=== PATIENT | female | born 1950 | race Caucasian/White ===

== ENCOUNTER 2017-11-24 13:35 | Inpatient (IN) | payer OTHER ==
[~2017-11-24] VITALS: Ht 160 cm; Wt 58.5 kg
--- NOTE | ~2017-11-24 | EEG ---
[facility] [place] [address] ELECTROENCEPHALOGRAM Name: JAYCOB RAMIREZ MANNY Room #: 364-P ADM IN M.R.#: [id number] Admission: 11/24/17 Attend Phys: Terrence Ayala, Discharge: Date of : 54 Report #: [id number] THIS REPORT FOR: //name// CC: Terrence Ayala This patient is being evaluated for dizziness. EEG was done by placing the electrode by standard 10-20 system of electrode placement. Both referential and sequential montages were used for recording. Background activity in this patient's EEG is about 10 Hz and 30 microvolts. It is a symmetrical activity. The patient became drowsy that is associated with bilateral slowing. Photic stimulation is unremarkable. Throughout the record, no active epileptiform activity was noticed. IMPRESSION: This patient's EEG is unremarkable. By: 1511 1542 Lev Shukla MD /jayy
--- NOTE | ~2017-11-24 | HC ---
[facility] [place] [address] CONSULTATION Name: JAYCOB RAMIREZ MANNY Room #: 363-P ADM IN M.R.#: [id number] Admission: 11/24/17 Attend Phys: Gilles Camargo Discharge: Date of : 54 Report #: [id number] THIS REPORT FOR: //name// CC: Terrence Ayala DATE OF SERVICE: 11/24/2017 HISTORY OF PRESENT ILLNESS: This is a 66-year-old female patient who was evaluated by me for double vision, which started on Friday. She woke up with it. She did not come to emergency room right away, but she did come later on. 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 She also had some dizziness, some mild headache, and some balance issues. They are difficult to evaluate because the patient had a stroke in the past. REVIEW OF SYSTEMS: Positive for stroke, which affected the left side of the body. 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 She had a stent put in there. She had a stent put in her lower extremities. She is on Plavix. She follows up with Dr. Solis. She does have some disk problems in the past. She has a history of depression and she had a history of kidney stone and adrenal masses. She continued to smoke. REVIEW OF SYSTEMS: A 14-point review of system was carried out and this was a relevant 14-point review of system. PAST MEDICAL HISTORY: Positive for stroke. FAMILY HISTORY: Negative for early age stroke. SOCIAL HISTORY: Positive for smoking. PHYSICAL EXAMINATION: NEUROLOGY: Indicates she is alert, responsive, and able to follow simple and complex command. Her speech, concentration, fund of knowledge, and memory is at her baseline. Cranial nerve examination 2-12 indicate partial left third nerve palsy. Pupil may be slightly bigger, but mostly spared. She has some weakness on the left side. She is hyperreflexic on the left. Tone may be slightly increased. Sensation is somewhat diminished. No cerebellar sign on the right side. I did not make her walk. She is moderately built individual who does not have any dysmorphic features of eyes, ears, and face. Her vision and hearing looks adequate. IMAGING DATA: She did have a CTA, but had a CTA of the head only and that did not show any aneurysm. IMPRESSION: The patient's clinical presentation is consistent with partial third nerve palsy. There is no evidence for aneurysm. It is probably [address] [address] CONSULTATION Name: JAYCOB RAMIREZ [facility] Room #: 363-P ADM IN M.R.#: [id number] Admission: 11/24/17 Attend Phys: Gilles Camargo Discharge: Date of : 54 Report #: [id number] idiopathic. We will see what the sed rate shows. We will give a patch to the patient and ask her to alternate that. I discussed with her that no ophthalmologists come here. I discussed with her the thing she needs to do. We will get an MRI done because sometime brainstem cerebrovascular accident can present exactly the same way. She is already on aspirin and limited things can be done. She got the angiogram only of the head, so we will go ahead and do a carotid Doppler in this patient. If MRI shows stroke, we may need some further workup. Thank you very much for this referral and we will follow this patient along with you. She got some aspirin, but I think we probably will just continue her Plavix for the time being. More than 50 minutes of time was spent taking care of this patient and majority of that time was spent counseling this patient and coordinating her care. By: 1848 [id number] Lev Shukla MD /nt
--- NOTE | ~2017-11-24 | H ---
[facility] [place] [address] HISTORY AND PHYSICAL Name: JAYCOB RAMIREZ MANNY Room #: 364-P ADM IN M.R.#: [id number] Admission: 11/24/17 Attend Phys: Gilles Camargo Discharge: Date of : 54 Report #: [id number] THIS REPORT FOR: //name// CC: Terrence Ayala DATE OF SERVICE: 11/24/2017 CHIEF COMPLAINT: Dizziness and double vision. HISTORY OF PRESENT ILLNESS: The patient is a 66-year-old female who presented to the Emergency Room after 2-3 day history of dizziness and diplopia. She said she awoke on Friday with symptoms of double vision, dizziness, mild bowel and some nausea and a mild headache. Symptoms have basically been waxing and waning for the last couple of days. As they did not improve, she presented to the Emergency Room last night. She has had no fever, chills, chest pain or shortness of breath. She reports a stroke in 2002, when she received TPA. She also reported a history of peripheral stent placed in right leg artery about one month ago for peripheral vascular disease. PAST MEDICAL HISTORY: Prior stroke in 2002, kidney stones in 2008. She had a stent placed in the innominate artery and a stent in the right leg. She has had a C5 displaced disk. PAST SURGICAL HISTORY: Noncontributory. FAMILY HISTORY: Noncontributory. SOCIAL HISTORY: She has a 67-myeg-ykgt history of smoking, but has quit. No chronic alcohol use. ALLERGIES: MRI CONTRAST. MEDICATIONS: Wellbutrin, trazodone, Plavix, Flexeril. REVIEW OF SYSTEMS: She denies headache, chest pain, shortness of breath, abdominal pain, fever, chills, nausea, vomiting, diarrhea, constipation, dysuria, syncope, falls. OBJECTIVE: VITAL SIGNS: Temperature 36.6, pulse 83, respirations 18, blood pressure 145/93, O2 sat 90-100% on room air. GENERAL: She is awake and alert, in no distress. HEENT: Reveals weakness of the left facial muscles and speech is clear. HEART: Regular. LUNGS: Clear. ABDOMEN: Soft, normoactive bowel sounds. [facility] [address] [place] [address] HISTORY AND PHYSICAL Name: JAYCOB RAMIREZ [facility] Room #: 364-P ADM IN .R.#: [id number] Admission: 11/24/17 Attend Phys: Gilles Camargo Discharge: Date of : 54 Report #: [id number] EXTREMITIES: No edema. NEUROLOGIC: She is alert and oriented x 4. Motor strength intact throughout. Labs and CT reviewed. ASSESSMENT: 1. Diplopia. 2. Left third cranial nerve palsy. 3. Cerebrovascular disease with remote history of stroke. 4. Peripheral vascular disease with recent history of stent to the right leg. PLAN: An MRI has been obtained today, and Neurology Service has assessed her. I will ask for Therapies to review as well. <ELECTRONICALLY SIGNED> By: Les Swan MD 11/25/17 1057 1023 1052 Les Swan MD /nt
--- NOTE | ~2017-11-24 | EKG ---
[address] [address] ELECTROCARDIOGRAM REPORT Name: JAYCOB RAMIREZ Room #: 364-P ADM IN M.R.#: [id number] Admission: 11/24/17 Attend Phys: Gilles Camargo Discharge: Date of : 54 Report #: [id number] THIS REPORT FOR: //name// [facility] ED Test Date: 2017-11-24 Test Time: 13:42:18 Pat Name: JAYCOB RAMIREZ Department: Room: 364 Gender: F Hair Boiler: : 1950 Requested By: Nasima Butler Order Number: [id number] MD: Morgan Shearer Measurements Intervals [place] Rate: 98 P: 80 OH: 130 QRS: 58 QRSD: 74 T: -57 QT: 328 QTc: 419 Interpretive Statements Sinus rhythm Left atrial enlargement Borderline repolarization abnormality Compared to ECG 05/11/2014 10:08:29 Atrial abnormality now present Sinus tachycardia no longer present ST (T wave) deviation no longer present Electronically Signed On 11-25-2017 17:06:52 CDT by Morgan Shearer [email or web address] <ELECTRONICALLY SIGNED> By: Morgan Shearer MD 11/25/17 1706 1342 1342 Morgan Shearer MD /EPI
--- NOTE | ~2017-11-24 | D ---
[facility] [place] [address] DISCHARGE SUMMARY Name: JAYCOB RAMIREZ Room #: 364-P ADM IN M.R.#: [id number] Admission: 11/24/17 Attend Phys: Gilles Camargo Discharge: Date of : 54 Report #: [id number] THIS REPORT FOR: //name// CC: Terrence Ayala DATE OF SERVICE: 11/26/2017 FINAL DIAGNOSES: 1. Cerebrovascular accident. 2. Dyslipidemia. HOSPITAL COURSE: The patient was admitted with double vision and dizziness. She was seen by the Neurology Service. She had symptoms of peripheral left cranial nerve third palsy and eye patch was applied. MRI confirmed a subacute pontine stroke. Plavix was reinstituted along with aspirin 81 mg. Lipid panel was obtained with cholesterol 216, LDL 180 on Lipitor 10 mg. She was walking 250 feet independently with just quad cane. She had no other interval complication. PHYSICAL EXAMINATION: GENERAL: On the day of discharge, she was awake and alert, in no distress. VITAL SIGNS: Temperature 36.6, pulse 77, respirations 20, blood pressure 130/80, ranging to 160/77, O2 sat 92% on room air. LUNGS: Clear. HEART: Regular. ABDOMEN: Soft, normoactive bowel sounds. EXTREMITIES: No edema. DISPOSITION: She is discharged to home with diet and activity as tolerated. No driving. Follow up with Dr. Ayala and Dr. Shukla in 2 weeks. Resume usual medicines plus aspirin 81 mg and Lipitor 10 mg. <ELECTRONICALLY SIGNED> By: Les Swan MD 11/27/17 0906 1312 1729 Les Swan MD /nt
--- NOTE | ~2017-11-24 | 2DMMODE ---
[facility] [address] [email or web address] [address] 2 D/M-MODE ECHOCARDIOGRAM Name: JAYCOB RAMIREZ MANNY Room #: 364-P ADM IN M.R.#: [id number] Admission: 11/24/17 Attend Phys: Terrence Brown Discharge: Date of : 54 Date of Service: 11/27/17 1544 Report #: [id number] THIS REPORT FOR: //name// APPROVED REPORT Study performed: 11/27/2017 14:36:13 EXAM: Comprehensive 2D, Doppler, and color-flow Echocardiogram Patient Location: Echo lab Room #: 364 Status: routine BSA: 1.60 HR: 88 bpm BP: 135/79 mmHg Rhythm: NSR Other Information Study Quality: Good Indications CVA. Hx: PVD, CVA, tobacco abuse. Echo Enhancing Agent Comments: Patient had no IV/No CV nurse 2D Dimensions RVDd: 21.60 mm IVSd: 12.00 (7-11mm) LVOT Diam: 18.06 (18-24mm) LVDd: 37.00 mm PWd: 12.00 (7-11mm) LVDs: 25.10 (25-40mm) Aortic Root: 25.65 mm Volumes Left Atrial Volume (Systole) Single Plane 4CH: 23.38 mL Single Plane 2CH: 24.65 mL LA ESV Index: 17.00 mL/m2 Aortic Valve AoV Peak Mason.: 1.69 m/s AO Peak Gr.: 11.47 mmHg LVOT Max P.62 mmHg LVOT Max V: 1.19 m/s STEFF Vmax: 1.[address] [facility] [address] [address] 2 D/M-MODE ECHOCARDIOGRAM Name: JAYCOB RAMIREZ [facility] Room #: 364-P [facility] IN [facility]#: [id number] Admission: 11/24/17 Attend Phys: Terrence Brown Discharge: Date of : 54 Date of Service: 11/27/17 1544 Report #: [id number] E/A Ratio: 0.7 MV Decel. Time: 200.57 ms MV E Max Mason.: 0.63 m/s MV A Mason.: 0.89 m/s MV PHT: 58.17 ms IVRT: 79.58 ms Pulmonary Valve PV Peak Mason.: 1.05 m/s PV Peak Gr.: 4.42 mmHg Pulmonary Vein P Vein S: 0.91 m/s P Vein D: 0.60 m/s P Vein S/D Ratio: 1.52 Tricuspid Valve TR Peak Mason.: 2.40 m/s RAP Estimate: 5.00 mmHg TR Peak Gr.: 22.97 mmHg PA Pressure: 28.00 mmHg Left Ventricle The left ventricle is normal size. There is normal LV segmental wall motion. Mild concentric left ventricular hypertrophy. Left ventricular systolic function is normal. LVEF is 60-65%. Mild diastolic dysfunction is present (impaired relaxation pattern). Right Ventricle The right ventricle is normal size. The right ventricular systolic function is normal. Atria The left atrium size is normal. No ASD/PFO noted with color doppler. The right atrium size is normal. Aortic Valve The Aortic valve is mildly sclerotic. No aortic regurgitation is present. There is no aortic valvular stenosis. Mitral Valve The mitral valve is normal in structure. There is no mitral valve regurgitation noted. No evidence of mitral valve stenosis. Tricuspid Valve The tricuspid valve is normal in structure. Trace tricuspid regurgitation. Estimated PAP is 28mmHg. [facility] [address] [id number] 2 D/M-MODE ECHOCARDIOGRAM Name: JAYCOB RAMIREZ [facility] Room #: 364-P [facility] IN M.R.#: [id number] Admission: 11/24/17 Attend Phys: Terrence Brown Discharge: Date of : 54 Date of Service: 11/27/17 1544 Report #: [id number] Pulmonic Valve Pulmonic valve is not well visualized. There is no pulmonic valvular stenosis. There is no pulmonic valvular regurgitation. Great Vessels The aortic root is normal in size. Pericardium No significant pericardial effusion. <Conclusion> The left ventricle is normal size. LVEF is 60-65%. The Aortic valve is mildly sclerotic. The mitral valve is normal in structure. The tricuspid valve is normal in structure. Trace tricuspid regurgitation. Estimated PAP is 28mmHg. Pulmonic valve is not well visualized. There is no pulmonic valvular stenosis. No significant pericardial effusion. No ASD/PFO noted with color doppler. <ELECTRONICALLY SIGNED> By: Toi Brice MD 11/27/17 1544 1544 1544 Toi Brice MD /INF
[~2017-11-24 13:35] MED LIST: BELLADONNA ALK PO; DESYREL50 MG PO; DUONEB 2.5-0.5 M3 ML INH; ENOXAPARIN40 MG/0.1 SUBQ; FENTANYL PA25 MCG/HR TRANSDERM; FLEXERIL PO; LIDODERM 5%1 PATC1 TRANSDERM; LIPITOR10 MG PO; MOBIC7.5 MG PO; NORCO 5-325 TA1 EACH PO; PERCOCET 5-3251 EACH; PRAVACHOL20 MG; PROTONIX40 M1 PO; ROBAXIN 750 MG750 M1 PO; ROXICODONE5 M2 PO; TRAZODONE HCL100 MG PO; TUMS PO; VISTARIL 25 MG25 M1 PO; WELLBUTRIN XL150 M1 PO
[2017-11-24] MEDS ORDERED: WELLBUTRIN XL300 MG PO (13:48)
[2017-11-24] MEDS ORDERED: TRAZODONE HCL100 MG PO (13:49)
[2017-11-24] MEDS ORDERED: FLEXERIL PO (13:50)
[2017-11-24] MEDS ORDERED: PLAVIX 75 MG TA75 M1 PO (13:50)
[2017-11-24 14:35] LABS: ABSOLUTE NEUTROPHILS 6.9 thou/uL (1.4-8.2); BASOPHILS 0.6 % (0.0-2.0); EOSINOPHILS 0.5 % (0.0-3.0); HEMATOCRIT 43.5 % (37.0-47.0); HEMOGLOBIN 15.2 gm/dL (12.0-15.0); LYMPHOCYTES 15.5 % (24.0-44.0); MCH 32.4 pg (26.0-34.0); MCV 92.6 fL (80.0-100.0); MONOCYTES 6.7 % (1.0-8.0); PLATELET COUNT 207 thou/uL (150-400); POLYS 76.7 % (36.0-66.0); RBC 4.69 mil/uL (4.20-5.00); RDW 14.3 % (10.5-14.5); WBC 8.9 thou/uL (4.0-11.0)
[2017-11-24 14:45] LABS: CALCIUM 10.1 mg/dL (8.5-10.1); POTASSIUM 3.4 mmol/L (3.5-5.1)
[2017-11-24 14:58] LABS: APTT 23.3 Seconds (24.5-32.8); PROTIME 10.1 Seconds (9.3-11.4)
[2017-11-24 15:38] LABS: URINE BILIRUBIN NEGATIVE (Negative); URINE BLOOD TRACE (Negative); URINE CLARITY CLEAR; URINE COLOR YELLOW; URINE GLUCOSE-RANDOM* NEGATIVE (Negative); URINE KETONES NEGATIVE (Negative); URINE NITRITE-REFLEX NEGATIVE (Negative); URINE PROTEIN (DIPSTICK) NEGATIVE (Negative); URINE UROBILINOGEN 0.2 E.U./dl (0.2-1.0)
[2017-11-24 15:39] LABS: URINE LEUKOCYTES-REFLEX TRACE (Negative)
[2017-11-24 16:34] VITALS: BP 129/71
[2017-11-24 17:00] VITALS: BP 131/72
[2017-11-24 17:55] VITALS: BP 189/94
[2017-11-24 20:27] VITALS: BP 135/80; BP 35/80
[2017-11-25 00:12] VITALS: BP 134/96
[2017-11-25 04:11] VITALS: BP 145/93
[2017-11-25 13:22] VITALS: BP 133/89
[2017-11-25 17:24] VITALS: BP 130/80
[2017-11-25 19:05] VITALS: BP 150/80
[2017-11-26 03:09] VITALS: BP 145/76
[2017-11-26 07:05] LABS: CHOLESTEROL 260 mg/dL (<200); HDL CHOLESTEROL 44 mg/dL (>40); LDL CHOLESTEROL 180 mg/dL (<100); TC:HDL 5.9 Ratio (Not establshd); TRIGLYCERIDE 182 mg/dL (<150); VLDL 36 mg/dL (<40)
[2017-11-26 07:08] LABS: SERUM ASSESSMENT Clear
[2017-11-26 07:32] LABS: TSH 1.66 uIU/mL (0.358-3.740)
[2017-11-26 07:38] VITALS: BP 160/77
[2017-11-26] MEDS ORDERED: LIPITOR10 MG PO (13:08)
[2017-11-26] MEDS ORDERED: ASPIRIN81 M2 PO (13:08)
[2017-11-26 16:04] VITALS: BP 141/82
[2017-11-26 19:15] VITALS: BP 120/75
[2017-11-27 04:00] VITALS: BP 119/61
[2017-11-27 08:38] VITALS: BP 135/79
[2017-11-27 16:19] VITALS: BP 132/78
[2017-11-27 19:45] VITALS: BP 152/79
[2017-11-28 05:00] VITALS: BP 150/77
[2017-11-28 09:00] VITALS: BP 138/80
[2017-11-28 14:19] VITALS: BP 138/80
== END 2017-11-28 16:52 | disposition home health service (06) | DRG 66 ==
LOC: ER 13:35 → EROBS 15:49 → 3W 15:49 → ENTRNSPT 11-28 16:40 → 3W 11-28 16:52
PROVIDERS: Emergency Medicine; Psychiatry & Neurology Neuromuscular Medicine
DX: I63.9 Cerebral infarction, unspecified (principal); H49.00 Third [oculomotor] nerve palsy, unspecified eye; F32.9 Major depressive disorder, single episode, unspecified; H55.00 Unspecified nystagmus; E78.5 Hyperlipidemia, unspecified; H53.2 Diplopia; I73.9 Peripheral vascular disease, unspecified; Z66 Do not resuscitate; Z87.81 Personal history of (healed) traumatic fracture; Z87.442 Personal history of urinary calculi; Z88.8 Allergy status to other drugs, medicaments and biological substances; Z91.041 Radiographic dye allergy status; Z87.891 Personal history of nicotine dependence; Z79.82 Long term (current) use of aspirin; Z79.899 Other long term (current) drug therapy
CPT/HCPCS: 10879

== ENCOUNTER 2020-06-10 13:41 | Emergency (ER) | payer OTHER ==
[~2020-06-10] VITALS: Ht 157.5 cm; Wt 66.2 kg
[~2020-06-10 13:41] MED LIST changes: +ASPIRIN81 M2 PO; +PLAVIX 75 MG TA75 M1 PO; +WELLBUTRIN XL300 MG PO
[2020-06-10 14:05] LABS: URINE BILIRUBIN NEGATIVE (Negative); URINE BLOOD 3+ (Negative); URINE COLOR YELLOW; URINE GLUCOSE-RANDOM* NEGATIVE (Negative); URINE KETONES NEGATIVE (Negative); URINE LEUKOCYTES-REFLEX 2+ (Negative); URINE NITRITE-REFLEX NEGATIVE (Negative); URINE PROTEIN (DIPSTICK) TRACE (Negative)
[2020-06-10 14:06] LABS: URINE CLARITY HAZY
[2020-06-10 14:12] LABS: SQUAMOUS 0-3 Few /LPF (0-3)
[2020-06-10 14:13] LABS: CASTS None Seen /LPF (None Seen); URINE RBC >20 Many /HPF (NONE SEEN); URINE WBC-REFLEX 0-5 Rare /HPF (0-5)
[2020-06-10 14:14] LABS: CRYSTALS None Seen /LPF (None Seen)
[2020-06-10 14:27] LABS: BASOPHILS 0.4 % (0.0-2.0); EOSINOPHILS 1.5 % (0.0-3.0); HEMATOCRIT 42.5 % (37.0-47.0); HEMOGLOBIN 15.1 gm/dL (12.0-15.0); LYMPHOCYTES 21.4 % (24.0-44.0); MCH 33.1 pg (26.0-34.0); MCHC 35.4 g/dL (28.0-37.0); MCV 93.6 fL (80.0-100.0); MONOCYTES 7.2 % (1.0-8.0); PLATELET COUNT 239 thou/uL (150-400); POLYS 69.5 % (36.0-66.0); RBC 4.55 mil/uL (4.20-5.00); RDW 14.7 % (10.5-14.5); WBC 7.2 thou/uL (4.0-11.0)
[2020-06-10 14:38] LABS: CREATININE 1.1 mg/dL (0.6-1.0)
[2020-06-10 14:45] LABS: ALBUMIN 3.4 g/dL (3.4-5.0); TOTAL BILIRUBIN 0.2 mg/dL (0.2-1.0); TOTAL PROTEIN 6.9 g/dL (6.4-8.2)
[2020-06-10] MEDS ORDERED: CIPRO500 M1 PO (15:52)
[2020-06-10] MEDS ORDERED: NORCO5 PO (15:52)
[2020-06-10 16:19] VITALS: BP 126/72
== END 2020-06-10 16:19 | disposition home or self-care (01) ==
LOC: ER 13:41
PROVIDERS: Physician Assistant
DX: N20.1 Calculus of ureter (principal); N39.0 Urinary tract infection, site not specified; J44.9 Chronic obstructive pulmonary disease, unspecified; K21.9 Gastro-esophageal reflux disease without esophagitis; F17.210 Nicotine dependence, cigarettes, uncomplicated; Z86.73 Personal history of transient ischemic attack (TIA), and cerebral infarction without residual deficits; Z91.041 Radiographic dye allergy status

== ENCOUNTER 2020-12-27 12:15 | Inpatient (IN) | payer OTHER ==
[~2020-12-27] VITALS: Ht 157.5 cm; Wt 60.3 kg
--- NOTE | ~2020-12-27 | EMS ---
[facility] [address] [place] [address] EMS Patient Care Report Name: JAYCOB RAMIREZ MANNY Room #: REG TWAN [place]#: [id number] Admission: 12/27/20 Attend Phys: Discharge: Date of : 54 Report #: [id number] THIS REPORT FOR: //name// Report Transmitted: 12/27/2020 12:08 EMS Care Summary [place], [place]/[facility] Incident [id number] @ 12/27/2020 11:53 Incident Location [address] [place] [address] Patient JAYCOB RAMIREZ Female, 70 Years 1950 Patient Address Patient History Stroke/CVA, Patient Allergies No known allergies, Patient Medications Trazodone, Chief Complaint L hip pain/fall Disposition Transported No Lights/[place] Dispatch Reason Falls Transported To [facility] Narrative pt found seated on stool in garage. she is a&o, states she lost her balance and fell in the garage. towel sorter saw fall and called it in. pt denies hitting head, only c/o pain to L hip. bystander helped pt up onto stool MACHINE [employer]MBRE[employer] TIPPER. pt states she is unable to bear weight on ext. she is req eval at [facility]. pt seated on cot, transport w/o change. report to RN rm 5. [facility] [address] [place] [address] EMS Patient Care Report Name: JAYCOB RAMIREZ Room #: REG [facility]..#: [id number] Admission: 12/27/20 Attend Phys: Discharge: Date of : 54 Report #: [id number] Initial Vitals @12:09P: 100,R: 18,BP: 150/70,Pain: 8/10,GCS: 15,SpO2: 94,Revised Trauma: 12, Assessments @12:00MENTAL:No Abnormalities,SKIN:No Abnormalities,HEENT:LUNG SOUNDS:ABDOMEN:PELVIS//GI:Tenderness,EXTREMITIES:PULSE:NEURO:Other, Impression Injury of Hip Procedures @12:00 ALS Assessment Response: Unchanged @12:05 Stretcher Response: Unchanged Timeline 11:52,Call Received 11:52,Dispatch Notified 11:53,Dispatched 11:53,En Route 11:59,On Scene 12:00,At Patient 12:00,ALS Assessment,Response: Unchanged 12:05,Stretcher,Response: Unchanged 12:07,Depart Scene 12:09,BP: 150/70 M,PULSE: 100,RR: 18 R,SPO2: 94 Ox,ETCO2: ,BG: ,PAIN: 8,GCS: 15, 12:13,At Destination 12:24,Call Closed Disclaimer v1.1 Copyright 2020 [employer] This EMS Care Summary contains data elements from the applicable legal record (which may be displayed differently). It is designed to provide pertinent information for the following purposes: continuity of care, clinical quality, and state data reporting. The complete legal record is available to ED staff and administrators of the receiving hospital in [facility]'s Patient Tracker. All data is provided "as is."
--- NOTE | ~2020-12-27 | O ---
[facility] [place] [address] OPERATIVE REPORT Name: JAYCOB RAMIREZ Room #: 448-P ADM IN M.R.#: [id number] Admission: 12/27/20 Attend Phys: Boris Rogers MD Discharge: Date of : 54 Report #: [id number] THIS REPORT FOR: cc: Terrence Ayala MD, Christopher B. MD Abraham, Scott M. MD ~ DATE OF SERVICE: 12/27/2020 PREOPERATIVE DIAGNOSIS: Left 2-part intertrochanteric hip fracture. POSTOPERATIVE DIAGNOSIS: Left 2-part intertrochanteric hip fracture. PROCEDURE: Treatment of left intertrochanteric hip fracture with IM nail. SURGEON: Eugenio Collins MD INSTRUCTIONAL SERVICES SPECIALIST: Denisse Coffman PA-C. INDICATION FOR INSTRUCTIONAL SERVICES SPECIALIST: Throughout the case, extensive retraction, manipulation of the hip was required. This was afforded to me by my senior executive assistant. ANESTHESIA: LMA. IMPLANTS: A [employer] size 10 short InterTAN nail with a size 90 lag screw and a size 85 compression screw and a size 27.5 distal locking screws. ESTIMATED BLOOD LOSS: 50 mL COMPLICATIONS: None. SPECIMENS: None. CONDITION UPON LEAVING THE OPERATING ROOM: Stable. INDICATIONS FOR PROCEDURE: The patient is a 70-year-old female who fell at home and sustained a left nondisplaced 2-part intertrochanteric hip fracture. After discussion with her, she elected for treatment with an IM nail. DESCRIPTION OF PROCEDURE: Risks, benefits, alternatives, complications were discussed in detail with the patient, including but not limited to risk of anesthesia, risk of damage to nerves, arteries, blood vessels, risk for infection, bleeding, risk for continued hip pain, malunion, nonunion, need for reoperation. Informed consent was obtained from the patient. Left hip was appropriately marked in the preoperative holding area. IV Ancef was given for preoperative antibiotics. She was brought to the operating room and LMA anesthesia was induced without complication. She was transferred to the [address] [address] OPERATIVE REPORT Name: JAYCOB RAMIREZ [facility] Room #: 448-P [facility] IN .R.#: [id number] Admission: 12/27/20 Attend Phys: Boris Rogers MD Discharge: Date of : 54 Report #: [id number] table. Left lower extremity was placed in slight traction. Right lower extremity was scissored. Left hip and lower extremity were prepped and draped in normal sterile fashion. Timeout was performed, properly identifying the patient, procedure as well as the instrumentation and implants. All in the operating room were in agreement. A 2-inch incision proximal to the greater trochanter was made with 10 blade through the skin and fascia in line with the femur. Threaded tip guidewire was taken and was placed on the tip of the greater trochanter and verified to be in adequate starting portal position under AP and lateral imaging. This was taken down to the level of the lesser trochanter. An entry portal reamer was used to ream the entry portal and a size 10 short InterTAN nail was placed down across the fracture site and seated. Fluoroscopic imaging was then used to place the guidewire for the lag screw in the center-center position under AP and lateral images. This was measured and found to be a size 90. The path for the compression screw was then reamed and a derotation device was placed. A size 90 lag screw was then placed up into the femoral head and a size 85 compression screw was placed and tightened. The nail was locked from above and 1 distal locking screw was placed in the dynamic slot. This was 27.5 mm in length. After this, the ____ was removed. Final fluoroscopic images were taken to verify adequate fracture reduction and placement of hardware. Wounds were thoroughly irrigated with normal saline, closed with 2-0 Vicryl, skin staple. Soft dressing was applied. The patient tolerated this procedure well and went to the recovery room under care of anesthesia postoperatively. By: 1312 1336 Eugenio Collins MD /jayy
[2020-12-27 12:15] VITALS: BP 190/85
[~2020-12-27 12:15] MED LIST changes: +CIPRO500 M1 PO; +NORCO5 PO
[2020-12-27 17:18] LABS: URINE BILIRUBIN NEGATIVE (Negative); URINE BLOOD 3+ (Negative); URINE CLARITY CLEAR; URINE COLOR YELLOW; URINE GLUCOSE-RANDOM* NEGATIVE (Negative); URINE KETONES NEGATIVE (Negative); URINE LEUKOCYTES-REFLEX TRACE (Negative); URINE NITRITE-REFLEX NEGATIVE (Negative); URINE PROTEIN (DIPSTICK) NEGATIVE (Negative); URINE SPECIFIC GRAVITY 1.025 (1.005-1.035); URINE UROBILINOGEN 0.2 E.U./dl (0.2-1.0)
[2020-12-27 17:32] LABS: CASTS None Seen /LPF (None Seen); SQUAMOUS 0-3 Few /LPF (0-3)
[2020-12-27 17:33] LABS: BACTERIA-REFLEX 1-9 Few /HPF (None Seen); CRYSTALS None Seen /LPF (None Seen); URINE WBC-REFLEX 0-5 Rare /HPF (0-5)
[2020-12-27] MEDS ORDERED: TRAMADOL 50 MG50 MG PO (17:36)
[2020-12-27] MEDS ORDERED: VITAMIN D31250 MC1 PO (17:37)
[2020-12-27 17:43] LABS: BASOPHILS 0.5 % (0.0-2.0); EOSINOPHILS 0.9 % (0.0-3.0); HEMATOCRIT 45.4 % (37.0-47.0); HEMOGLOBIN 15.3 gm/dL (12.0-15.0); LYMPHOCYTES 12.8 % (24.0-44.0); MCH 31.4 pg (26.0-34.0); MCHC 33.7 g/dL (28.0-37.0); MCV 93.1 fL (80.0-100.0); MONOCYTES 7.7 % (1.0-8.0); PLATELET COUNT 201 thou/uL (150-400); POLYS 78.1 % (36.0-66.0); RBC 4.87 mil/uL (4.20-5.00); WBC 10.3 thou/uL (4.0-11.0)
[2020-12-27 17:48] LABS: CALCIUM 9.4 mg/dL (8.5-10.1); POTASSIUM 3.8 mmol/L (3.5-5.1)
[2020-12-27 19:22] VITALS: BP 122/72
[2020-12-27 20:33] VITALS: BP 134/77
--- NOTE | 2020-12-27 23:16 | NUR ---
ADMISSION COMPLETED. PT IS CALM AND PLEASANT. WITH LEFT HIP PAIN MAINLY WITH MOVEMENT.PT ALSO HAS PERIODIC SPASMS.SOME BRUISING NOTED FROM THE FALL. SCDS PLACED. PT ON /NC TO KEEP SATS ABOVE 92 %. I/S PROVIDED AND PT ENCOURAGED TO USE W/A. EXTERNAL FEM CATHETER.LIGHT YELLOW U/O NOTED. OXYCODONE GIVEN FOR PAIN AND IVF STARTED. SHE ATE SOME TURKEY SANDWICH. NPO AFTER MIDNIGHT.CALL LIGHT WITHIN REACH.
[2020-12-28 04:56] VITALS: BP 110/52
[2020-12-28 05:27] LABS: HEMATOCRIT 40.5 % (37.0-47.0); MCH 32.6 pg (26.0-34.0); MCHC 34.7 g/dL (28.0-37.0); MCV 93.9 fL (80.0-100.0); RBC 4.31 mil/uL (4.20-5.00); WBC 7.4 thou/uL (4.0-11.0)
[2020-12-28 05:49] LABS: CALCIUM 9.1 mg/dL (8.5-10.1); POTASSIUM 3.7 mmol/L (3.5-5.1)
[2020-12-28 08:46] VITALS: BP 127/62
--- NOTE | 2020-12-28 09:00 | NUR ---
70 year old female with a history of CVA, PAD and tobacco abuse who presented to the ED with complaints of left hip pain after a fall. The patient was walking in her garage and tripped over her own feet and fell. Workup in the ED showed an acute L femoral neck intertrochanteric fracture. She complains with pain with movement of the left leg per attending physician. Tx with IM NAIL. to OR for FIXATION. CM visited with her at bedside. Intro to cm and dcp. She is A & o x 3, able to make her needs known. Independent, Lives alone. 2 flights of steps with total of 14 steps. Manage own medication. Has a cane and fww. no home oxygen but is on oxygen per pr. Unknown if she had hh in the past. She has been to skilled rehab at [address]. Plan for OR today. Will cont following as needed.
--- NOTE | 2020-12-28 10:34 | NUR ---
A/O X 4. 2 L O2 VIA NASAL CANNULA. LEFT FOREARM IV WITH NS @ 75 MLS/HR. LEFT HIP PAIN 09/19 NORCO GIVEN. NPO SINCE MIDNIGHT FOR SURGERY ON LEFT HIP TODAY.
[2020-12-28 11:57] VITALS: BP 95/69
[2020-12-28 16:25] VITALS: BP 111/71
[2020-12-28 20:18] VITALS: BP 93/65
--- NOTE | 2020-12-29 04:02 | NUR ---
ASSUMED CARE OF PT AT 1900. BEDSIDE REPORT RECIEVED. OTTO ASSESSMENT COMPLETE. C/O 8 L HIP PAIN. PAIN MEDS GIVEN ACCORDINLY, MEDS GIVEN PER MAR. IVF INFUSING AND IV ABTS RUNNING PER APR. REILLED ICE PACK TO L HIP. Q2 HOUR REPOSITIONING FOR COMFORT. PUREWICK IN PLACE. ALL NEEDS MET. CALL LIGHT IN REACH, HIGH FALL PRECAUTIONS IN PLACE
[2020-12-29 04:55] LABS: CALCIUM 8.5 mg/dL (8.5-10.1); CREATININE 0.9 mg/dL (0.6-1.0); POTASSIUM 4.1 mmol/L (3.5-5.1)
--- NOTE | 2020-12-29 04:57 | NUR ---
I AGREE WITH NURSE BAKER ON THE ASSESSMENT AND CHARTING OF THIS PT.
[2020-12-29 05:00] LABS: HEMATOCRIT 38.5 % (37.0-47.0); MCH 32.1 pg (26.0-34.0); MCHC 33.7 g/dL (28.0-37.0); MCV 95.4 fL (80.0-100.0); RBC 4.04 mil/uL (4.20-5.00); RDW 13.4 % (10.5-14.5); WBC 7.5 thou/uL (4.0-11.0)
[2020-12-29 08:36] VITALS: BP 161/77
--- NOTE | 2020-12-29 09:09 | NUR ---
A/O X 4. ON 2 L O2 VIA NASAL CANNULA. ONE ASSIST WITH TRANSFERS. LEFT FOREARM PIV WITH NS INFUSING @ 75 MLS/HR. PUREWICK IN PLACE. LEFT HIP DRESSING DRY, CLEAN, INTACT. PAIN LEVEL 8/[address] ICE PL[address] ON LEFT HIP.
--- NOTE | 2020-12-29 09:45 | NUR ---
Cm visited with pat at bedside, education on rehab and skilled rehab. Been to [facility] in the past and if needs rehab she is agreeable. 5n consult. If she does not meet criteria for 5N, will send referral to [facility]. Will need insurance auth either way for acute rehab or skilled. Will cont following as needed for dc needs.
[2020-12-29 16:06] VITALS: BP 144/70
[2020-12-29 20:35] VITALS: BP 145/73
--- NOTE | 2020-12-30 04:12 | NUR ---
ASSUMED CARE OF PT AT 1900. BEDSIDE REPORT RECIEVED. OTTO ASSESSMENT COMPLETE. PT C/O 8/10 L HIP PAIN. L HIP DRESSING CDI C NO APPARENT DRAINAGE. MEDES GIVEN PER MAR, PAIN MEDS GIVEN ACCORDINGLY. Q 2 HOUR REPOSITIOING FOR COMFORT. PUREWICK IN PLACE. 2 L NC. IVF INFUSING. HIGH FALL PRECAUTIONS IN PLACE. ALL NEEDS MET, CALL LIGHT IN REACH
[2020-12-30 08:08] VITALS: BP 155/70
--- NOTE | 2020-12-30 10:06 | NUR ---
A/O X 4. 2 L O2 VIA NASAL CANNULA. ONE ASSIST WITH TRANSFERS WITH WALKER. LEFT FOREARM IV WITH NS INFUSING @ 75MLS/HR. OXYCODONE GIVEN FOR HIP PAIN
[2020-12-30 16:37] VITALS: BP 152/78
[2020-12-30 19:35] VITALS: BP 153/78
--- NOTE | 2020-12-31 00:31 | NUR ---
ASSUMED PT CARE AT 0000.PT WAS OBSERVED LYING IN BED WITH HER EYES CLOSED. DRSG TO HER L HIP C/D/I.EXTERNAL FEMALE CATH IN PLACE.PT ON 2L/NC.PT BREATHING NORMAL AND UNLABORED.CALL LIGHT WITHIN REACH.
[2020-12-31 08:14] VITALS: BP 149/62
--- NOTE | 2020-12-31 09:49 | NUR ---
ASSUMED CARE OF PT AT 0700 THIS MORNING. PT IS A/OX4, AND HAD ABD SURGERY 12/30. PT STATED SHE IS READY TO GO HOME. SKIN INTACT WITH LAP SITES X 5. ABD TENDER AND SLIGHTLY DISTENDED WITH ACTIVE BOWEL SOUNDS. BM THIS MORNING WITH NO ISSUES. ASSESSMENTS NOTED IN CHART AND OTHERWISE UNREMARKABLE. PT IS UP INDEP AND NO FALL PRECAUTIONS NEEDED. MEDS AND OTHER TX GIVEN NEEDED AND SCHEDULED. DR. HINKLE STATED PT CAN BE DICHARGED AND ORDERS HAVE BEEN GIVEN. PT STATED CANNOT TAKE THE [place] PERSCRIBED TO HER AND REQUESTS TORDOL. DR. HINKLE WAS NOTIFIED AND STATED OK. PT WAS GIVEN DISCHARGE INSTRUCTIONS AND WAS TRANSPORTED BY WC AND [facility] TO ER EXIT.
--- NOTE | 2020-12-31 12:45 | NUR ---
ASSUMED CARE OF PT AT 0700 THIS MORNING. PT WAS A/OX4 THIS MORNING AND WAS NOT C/O ANY PAIN. PT HAS PUREWIC IN PLACE. LT HIP HAS ABD PAD WITH TAPE C/D/I. POST SURGERY DAY 2 AND PT REALLY WOULD LIKE TO GET UP AGAIN TODAY. I WILL CHECK WITH PHYS THPY AND SEE IF SHE'S ON THE SCHEDULE. ASSESSMENTS NOTED IN CHART AND OTHERWISE UNREMARKABLE. PT IS 2X ASST. WITH GB AND WALKER. FALL PRECAUTIONS ARE IN PLACE. CALL LIGHT AND OTHER NEEDS ARE IN PLACE. MEDS AND TX GIVEN NEEDED AND SCHEDULED. WILL MONITOR AND NOTE ANY CHANGES.
[2020-12-31 14:16] VITALS: BP 149/62
[2020-12-31 19:35] VITALS: BP 144/65
[2021-01-01 04:52] VITALS: BP 137/57
--- NOTE | 2021-01-01 05:44 | NUR ---
PT LYING IN BED. PERCOCET PROVIDING PAIN RELIEF. RESTING COMFORTABLY. NO NEEDS VOICED. CALL LIGHT WITHIN REACH. FREQUENT OBSERVATION.
[2021-01-01 07:15] LABS: HEMATOCRIT 35.5 % (37.0-47.0); MCH 31.4 pg (26.0-34.0); MCHC 33.9 g/dL (28.0-37.0); MCV 92.7 fL (80.0-100.0); RBC 3.83 mil/uL (4.20-5.00); RDW 13.3 % (10.5-14.5); WBC 5.8 thou/uL (4.0-11.0)
[2021-01-01 07:18] LABS: CREATININE 0.8 mg/dL (0.6-1.0); POTASSIUM 3.2 mmol/L (3.5-5.1)
[2021-01-01 09:47] VITALS: BP 152/78
--- NOTE | 2021-01-01 09:54 | NUR ---
HCR of graciela has insurance auth from [facility] for skilled rehab. Chart copy requested. Need covid test prior to dc today. Spoke with zita and she agrees with dcp. Esteban spoke with her sister sushma and she agrees with dcp as well. Sushma will need to be notified of transportation time. Bedside nurse to call report to [phone].
[2021-01-01] MEDS ORDERED: TRI-BUFFERED A325 M1 PO (12:58)
[2021-01-01] MEDS ORDERED: PERCOCET PO (12:58)
[2021-01-01] MEDS ORDERED: IPRAT-ALBUT 0.5-3 ML INH (12:59)
--- NOTE | 2021-01-01 16:38 | NUR ---
Pt A &O x4. Pt VS stable. pt received medications as ordered and also received PRN medications as requested by pt. pt received discharge orders to skilled facilty. Pt awaiting ride to facility. pt is x 1 assist with ADLs and cares. pt is able to make needs known
--- NOTE | 2021-01-01 16:54 | NUR ---
Pt ride arrived to room. Pt wheeled to enterence by transport with personal belongings and left hospital without incident. transport has pt paperwork.
== END 2021-01-01 16:58 | DRG 481 ==
LOC: ER 12:15 → EROBS 17:20 → 4S 17:20
PROVIDERS: Emergency Medicine; ADMIT Hospitalist; ATTEND Hospitalist
PROC: 0QH736Z Insertion of Intramedullary Internal Fixation Device into Left Upper Femur, Percutaneous Approach (ICD-10-PCS; principal; 2020-12-27)
DX: S72.145A Nondisplaced intertrochanteric fracture of left femur, initial encounter for closed fracture (principal); D68.69 Other thrombophilia; I73.9 Peripheral vascular disease, unspecified; J44.9 Chronic obstructive pulmonary disease, unspecified; K21.9 Gastro-esophageal reflux disease without esophagitis; F41.9 Anxiety disorder, unspecified; F32.9 Major depressive disorder, single episode, unspecified; F17.210 Nicotine dependence, cigarettes, uncomplicated; R09.02 Hypoxemia; Z20.822 Contact with and (suspected) exposure to COVID-19; Z87.442 Personal history of urinary calculi; Z95.5 Presence of coronary angioplasty implant and graft; Z88.8 Allergy status to other drugs, medicaments and biological substances; Z91.041 Radiographic dye allergy status; Z23 Encounter for immunization; W18.39XA Other fall on same level, initial encounter; Y93.89 Activity, other specified; Y92.89 Other specified places as the place of occurrence of the external cause; Y99.8 Other external cause status
CPT/HCPCS: 10195; 50010; 50101; 50386; 51412; 51538; 52304; 56524; 57092; 58100; 58396; 59089; 62110; 62900; 70005

== ENCOUNTER → 2021-01-25 | Outpatient (CLI) | payer OTHER ==
[~2021-01-25] MED LIST changes: +IPRAT-ALBUT 0.5-3 ML INH; +PERCOCET PO; +TRAMADOL 50 MG50 MG PO; +TRI-BUFFERED A325 M1 PO; +VITAMIN D31250 MC1 PO
== END ==
LOC: NUC 13:38
PROVIDERS: ATTEND Orthopaedic Surgery
DX: S72.145A Nondisplaced intertrochanteric fracture of left femur, initial encounter for closed fracture (principal); M81.0 Age-related osteoporosis without current pathological fracture; X58.XXXA Exposure to other specified factors, initial encounter; Y93.89 Activity, other specified; Y92.89 Other specified places as the place of occurrence of the external cause; Y99.8 Other external cause status